=== PATIENT | male | born 1975 | race Hispanic/Latino ===

== ENCOUNTER 2025-10-03 12:20 | Emergency (ER) | payer SELFPAY ==
[2025-10-03 12:26] VITALS: BP 163/103
[2025-10-03 14:11] VITALS: BMI 36.9
[2025-10-03 16:10] VITALS: BP 124/84
--- NOTE | 2025-10-03 16:32 | ED.GENMED ---
History of Present Illness
General
Chief Complaint: Anal/Rectal Problem
Source: patient
Exam Limitations: none
Time Seen by Provider: 10/03/25 15:35
Nursing documentation reviewed up to this point in time: agreed with
History of Present Illness
History of Present Illness:
see MDM
Past History
Past History
ED Past Medical History: None
ED Past Surgical History: None
Review of Systems
Review of Systems
Allergies reviewed?: Yes
All Other Systems: Not applicable
Course
Orders/Labs/Results
Orders:
Orders
10/03/25 16:25
Sulfamethox./Trimethoprim Ds [Bactrim Ds 800 mg/160 mg] 1 tablet PO NOW STA
Vital Signs
Initial and Last Documented VS:
Initial Vital Signs
Temp Pulse Resp BP Pulse Ox
37.0 C 115 20 163/103 97
10/03/25 12:26 10/03/25 12:26 10/03/25 12:26 10/03/25 12:26 10/03/25 12:26
Last Documented Vital Signs
Temp Pulse Resp BP Pulse Ox
37.0 C 94 16 124/84 97
10/03/25 12:26 10/03/25 16:10 10/03/25 16:10 10/03/25 16:10 10/03/25 16:33
MDM/Problems Addressed
Differential Diagnosis Includes:
see mdm
MDM/Problems Addressed:
Note:
CHIEF COMPLAINT(S)
Rectal pain and drainage following rupture of a presumed external hemorrhoid.
HISTORY OF PRESENT ILLNESS
The patient is a male who presented with concerns about rectal discomfort and drainage. Approximately two weeks ago, he noted what felt like a pimple in the anal region. This area subsequently swelled and ruptured, discharging pus and some blood.
The patient�s guardian described it as initially resembling a hemorrhoid. The rupture led to the development of an anal abscess with associated discomfort. The guardian noted that the swelling had drained, reducing pain considerably, and described
intermittent fevers, although the patient does not currently have a fever. There is no history of diabetes. Pain was significant initially but has since decreased with drainage. The patient was instructed in hygiene and sitz baths for local care.
REVIEW OF SYSTEMS
- Gastrointestinal: Report of rectal pain, abscess noted, previous drainage of pus and blood.
- General: Intermittent fever reported, none currently. No vomiting.
PHYSICAL EXAM
- Gastrointestinal: External examination reveals an open abscess in the perirectal area. Drainage noted with recent history of pus and blood discharge. No active bleeding seen.
- Vital signs and nursing notes reviewed.
PLAN
The plan includes:
1. Administration of antibiotics to address the infection.
2. Advise regular sitz baths or warm soaks in a bathtub to promote drainage and cleanliness of the affected area.
3. Prescribe a stool softener to ease bowel movements and prevent further irritation or straining.
4. Avoidance of unnecessary diagnostic imaging like a CT scan to reduce costs and radiation exposure.
5. Referral to a colorectal specialist for further management and evaluation.
6. Recommend follow-up with a family doctor or clinic if available, particularly beneficial for uninsured patients in the region.
DIFFERENTIAL DIAGNOSIS
The Differential Diagnosis includes, in no particular order and is not limited to:
1. Perianal abscess
2. External hemorrhoid
3. Anal fissure
4. Pilonidal cyst
5. Rectal prolapse
6. Inflammatory bowel disease with perianal involvement
7. Diverticular disease with perianal symptoms
8. Proctitis
9. Rectal carcinoma
10. Skin infection (e.g., cellulitis) in the perianal area.
*Pulse Oximetry
SaO2: 97
Oxygen Mode of Delivery: Room air
ED Attending Note
-
Portions of this chart may have been created with voice recognition software.� Occasional wrong word or��sound alike� substitutions may have occurred due to the inherent limitations of voice recognition software.
Discharge Plan
Departure
Patient Disposition: Home (Routine Discharge)
Date of Disposition: 10/03/25
Time of Disposition: 16:55
Patient with high blood pressure during this ER visit?: No
Condition: Fair
Covid-19: Not Applicable
Discharge Problem:
Abscess of buttock
Instructions: How to Do a Sitz Bath, Boil - ED (DC)
Prescriptions:
New
sulfamethoxazole-trimethoprim [Bactrim DS] 800-160 mg tablet
2 tab PO BID Qty: 40 0RF
Referrals:
[facility] [Provider Group] - Follow up in 5-7 days
[facility] [Outside] - Follow up in 5-7 days
Walker Levine MD [Active, ColoRectal] - Follow up in 5-7 days
NONE,* [Family Provider, Internal Medicine]
Activity Restrictions/Additional Instructions:
Your abscess is draining and you should continue to soak or sit in the sitz bath for 10 to 20 minutes several times a day to keep it clean and draining. Additionally take Bactrim 2 tablets in the morning, 2 tablets at night for 10 days.
There is a residency clinic that you can try to call and make an appointment since you do not have a family doctor. I did reach out to the residency clinic and gave them your name and date of , hopefully they will follow-up with a appointment.
Return to the ER for fever, severe pain, redness or swelling, continue drainage etc. Otherwise you can follow-up with Dr. Levine
Interventions
Interventions:
*General Assessment Last Done: 10/03/25 12:26
*Neglect/Abuse Screening Last Done: 10/03/25 12:26
*ED COVID-19 Vaccine History Last Done: 10/03/25 14:11
*ED Influenza Vaccine History Last Done: 10/03/25 14:11
[facility] Risk Assessment Tool Last Done: 10/03/25 14:11
*Risk Screen - Suicide (C-SSRS) Last Done: 10/03/25 17:08
*Nursing Disposition Last Done: 10/03/25 17:08
SU-Frzjgz-Mkiuurrnbm Assessment Last Done: 10/03/25 17:08
ED-Skin Assessment Last Done: 10/03/25 14:11
Discharge Date and Time
Discharge Date/Time: 10/03/25 17:09
Print Language: MALDIVIAN
[2025-10-03] MEDS: BACTRIM DS 800 MG/160 MG 1 TABLET PO (16:48)
== END 2025-10-03 17:09 | disposition home or self-care (01) ==
LOC: EMR 12:20
PROVIDERS: EMERGENCY PHYSICIAN Student in an Organized Health Care Education/Training Program
DX: K61.1 Rectal abscess (principal)
CPT/HCPCS: 99283